=== PATIENT | male | born 2000 | race Caucasian/White ===

== ENCOUNTER 2023-07-18 18:00 | Emergency (ER) | payer SELFPAY ==
[2023-07-18] MEDS ORDERED: FAMOTIDINE 20 MG TAB ONE (19:34)
[2023-07-18] MEDS ORDERED: ONDANSETRON 4 MG (ODT) TAB ONE (19:35)
[2023-07-18 19:59] LABS: SARS-CoV-2 Antigen CONTROL BLUE LINE VIS/BG OK; SARS-CoV-2 Antigen Rapid Res Negative (Negative)
--- NOTE | 2023-07-18 20:21 | ER ---
Nurse's Notes [facility] Name: Robbin Matthews Jr Age: 23 yrs Sex: Male : 2000 Arrival Date: 07/18/2023 Time: 18:00 Bed DX3 Private MD: Diagnosis: Nausea with vomiting, unspecified;Diarrhea, unspecified Presentation: 07/17 18:18 Chief complaint: Patient states: abdominal pain, vomiting, diarrhea that started around as6 1 AM. Coronavirus screen: At this time, the client does not indicate any symptoms associated with coronavirus-19. Ebola Screen: No symptoms or risks identified at this time. Initial Sepsis Screen: Does the patient meet any 2 criteria? No. Patient's initial sepsis screen is negative. Does the patient have a suspected source of infection? No. Patient's initial sepsis screen is negative. Risk Assessment: Do you want to hurt yourself or someone else? Patient reports no desire to harm self or others. Onset of symptoms was July 18, 2023. 18:18 Acuity: NUNU 3 as6 18:18 Method Of Arrival: Ambulatory as6 Triage Assessment: 18:19 General: Appears in no apparent distress. uncomfortable, ill, Behavior is calm, as6 cooperative. Pain: Complains of pain in abdomen. GI: Reports lower abdominal pain, upper abdominal pain, diarrhea, nausea, vomiting. Historical: - Allergies: 18:18 No Known Allergies; as6 - PMHx: 18:18 None; as6 - PSHx: 18:18 None; as6 - Immunization history:: Adult Immunizations up to date. - Infectious Disease History:: Denies. - Social history:: Smoking status: Patient denies any tobacco usage or history of. Screenin:56 [facility] ED Fall Risk Assessment (Adult) History of falling in the last 3 months, pf1 including since admission No falls in past 3 months (0 pts) Confusion or Disorientation No (0 pts) Intoxicated or Sedated No (0 pts) Impaired Gait No (0 pts) Mobility Assist Device Used No (0 pt) Altered Elimination No (0 pt) Score/Fall Risk Level 0 - 2 = Low Risk Oriented to surroundings, Maintained a safe environment, Educated pt \T\ family on fall prevention, incl call for assistance when getting out of bed, Assessed \T\ reinforced patient's understanding of fall precautions, Provided non-skid footwear, Hourly rounding (assess needs \T\ fall precautionary measures) done, Used ambulatory aids as needed (educated on \T\ assisted with), Used gait belt as appropriate. Abuse screen: Denies threats or abuse. Nutritional screening: No deficits noted. Tuberculosis screening: No symptoms or risk factors identified. Assessment: 20:40 General: Appears in no apparent distress. comfortable, well groomed, well developed, pf1 Behavior is calm, cooperative, appropriate for age, quiet. 20:40 Pain: Denies pain. Neuro: No deficits noted. Level of Consciousness is awake, alert, pf1 obeys commands, Oriented to person, place, time, situation. Cardiovascular: No deficits noted. Capillary refill < 3 seconds Patient's skin is warm and dry. Respiratory: No deficits noted. Airway is patent Respiratory effort is even, unlabored, Respiratory pattern is regular, symmetrical. GI: Abdomen is round non-distended, Bowel sounds present X 4 quads. Reports diarrhea, nausea, vomiting. : No deficits noted. No signs and/or symptoms were reported regarding the genitourinary system. EENT: No deficits noted. No signs and/or symptoms were reported regarding the EENT system. Derm: No deficits noted. No signs and/or symptoms reported regarding the dermatologic system. Musculoskeletal: Circulation, motion, and sensation intact. Capillary refill < 3 seconds, Range of motion: intact in all extremities. Vital Signs: 18:18 BP 120 / 77; Pulse 84; Resp 18 S; Temp 99.5(O); Pulse Ox 97% on R/A; Weight 99.79 kg as6 (R); Height 5 ft. 6 in. (R); Pain 7/10; 20:58 BP 115 / 71; Pulse 81; Resp 16; Temp 98.9; Pulse Ox 99% on R/A; Pain 0/10; pf1 18:18 Body Mass Index 35.51 (99.79 kg, 167.64 cm) as6 18:18 Pain Scale: Adult as6 20:58 Pain Scale: Adult pf1 ED Course: 18:02 Patient arrived in ED. im 18:18 Arm band placed on left wrist. as6 18:19 Triage completed. as6 18:56 Rommel Luther PA is PHCP. cp 18:56 Rommel Ramires MD is Attending Physician. cp 19:40 SARS RAPID Sent. vc1 19:40 Influenza Screen (a \T\ B) Sent. vc1 19:40 COVID swab sent to lab. Flu and/or RSV swab sent to lab. vc1 20:40 Diet: Tolerated well PO challenge completed . pf1 20:40 Patient has correct armband on for positive identification. pf1 20:58 No provider procedures requiring assistance completed. Patient did not have IV access pf1 during this emergency room visit. 20:59 Provided Education on: prescriptions. pf1 Administered Medications: 19:40 Drug: Ondansetron PO 4 mg PO once Route: PO; vc1 20:55 Follow up: Response: No adverse reaction; Marked relief of symptoms; Nausea is decreasedpf1 19:40 Drug: Famotidine PO 20 mg PO once Route: PO; vc1 20:55 Follow up: Response: No adverse reaction; Marked relief of symptoms pf1 Medication: 21:00 VIS not applicable for this client. pf1 Outcome: 20:20 Discharge ordered by MD. cp 20:58 Discharged to home ambulatory, pf1 20:58 Condition: improved 20:58 Discharge instructions given to patient, Instructed on discharge instructions, follow up and referral plans. Demonstrated understanding of instructions, follow-up care, Prescriptions given X 1, 21:00 Patient left the ED. pf1 Signatures: Rommel Luther PA PA cp Slawson, Ashby, RN RN as6 Natasha Do RN RN vc1 Candy Tolliver RN RN pf1 Alma Ordaz
--- NOTE | 2023-07-18 20:21 | EDPHYS ---
Physician Documentation [facility] Name: Robbin Matthews Jr Age: 23 yrs Sex: Male : 2000 Arrival Date: 07/18/2023 Time: 18:00 Bed DX3 Private MD: ED Physician Rommel Ramires HPI: 07/17 19:09 This 23 yrs old Male presents to ER via Ambulatory with complaints of cp Nausea/Vomiting/Diarrhea, Abdominal Pain. 19:09 The patient presents to the emergency department with nausea, that is moderate, cp vomiting, that is intermittent, 5 times today, diarrhea, 6 times today, abdominal pain, described as crampy. Onset: The symptoms/episode began/occurred this morning. Historical: - Allergies: 18:18 No Known Allergies; as6 - PMHx: 18:18 None; as6 - PSHx: 18:18 None; as6 - Immunization history:: Adult Immunizations up to date. - Infectious Disease History:: Denies. - Social history:: Smoking status: Patient denies any tobacco usage or history of. Vital Signs: 18:18 BP 120 / 77; Pulse 84; Resp 18 S; Temp 99.5(O); Pulse Ox 97% on R/A; Weight 99.79 kg as6 (R); Height 5 ft. 6 in. (R); Pain 7/10; 20:58 BP 115 / 71; Pulse 81; Resp 16; Temp 98.9; Pulse Ox 99% on R/A; Pain 0/10; pf1 18:18 Body Mass Index 35.51 (99.79 kg, 167.64 cm) as6 18:18 Pain Scale: Adult as6 20:58 Pain Scale: Adult pf1 MDM: 18:56 Patient medically screened. cp 07/17 19:10 Order name: Influenza Screen (a \T\ B) cp 07/17 19:10 Order name: SARS RAPID cp 07/17 20:07 Order name: PO challenge; Complete Time: 20:55 cp Administered Medications: 19:40 Drug: Ondansetron PO 4 mg PO once Route: PO; vc1 20:55 Follow up: Response: No adverse reaction; Marked relief of symptoms; Nausea is decreasedpf1 19:40 Drug: Famotidine PO 20 mg PO once Route: PO; vc1 20:55 Follow up: Response: No adverse reaction; Marked relief of symptoms pf1 Disposition: 22:15 Co-signature as Attending Physician, Rommel Ramires MD I agree with the assessment and [facility] plan of care. Disposition Summary: 07/18/23 20:20 Discharge Ordered Notes: Location: Home cp Problem: new cp Symptoms: have improved cp Condition: Stable cp Diagnosis - Nausea with vomiting, unspecified cp - Diarrhea, unspecified cp Followup: cp - With: Private Physician - When: 1 - 2 days - Reason: Worsening of condition Discharge Instructions: - Discharge Summary Sheet cp - Food Choices to Help Relieve Diarrhea, Adult cp - Diarrhea, Adult cp - Nausea and Vomiting, Adult cp Forms: - Medication Reconciliation Form cp - Antibiotic Education cp - Prescription Opioid Use cp - Patient Portal Instructions cp - Leadership Thank You Letter cp - Work release form cp4 Prescriptions: - ondansetron 8 mg Oral Tablet,disintegrating - take 1 tablet ORAL route every 12 hours; 20 tablet; Refills: 0, Product cp Selection Permitted Signatures: Dispatcher [employer] EDMS Rommel Ramires MD MD cha Page, Corey, PACHECO PA cp Pepito Craig RN RN as6 Natasha Do RN RN vc1 Candy Tolliver RN pf1 Corrections: (The following items were deleted from the chart) 19:10 19:10 Influenza Screen (A \T\ B)+BA.LAB.BRZ ordered. EDMS EDMS 19:10 19:10 SARS-COV-2 Antigen Rapid+I.LAB.BRZ ordered. EDMS EDMS
[2023-07-18 21:14] VITALS: BP 115/71; TEMP 98.9; O2SAT 99
== END 2023-07-18 21:00 | disposition home or self-care (01) ==
LOC: ER 18:00
DX: R11.2 Nausea with vomiting, unspecified (principal); R19.7 Diarrhea, unspecified; Z11.52 Encounter for screening for COVID-19
CPT/HCPCS: 36415; 87804; 87811; 99284; Q0162